=== PATIENT | female | born 1990 | race African-American/Black ===

== ENCOUNTER 2017-07-02 11:49 | Outpatient (CLI) | payer MEDICAID ==
[~2017-07-02] VITALS: Ht 177.8 cm; Wt 96.0 kg
[2017-07-02 13:38] VITALS: Ht 177.8 cm; Wt 96.0 kg
[2017-07-02 13:39] VITALS: BP 116/72; PULSE 97; RESP 20
--- NOTE | 2017-07-02 14:05 | PN ---
Triage Information Date/Time Reason for visit: swallon labia and yeast infection Weeks of Gestation Patient is 2 para 1 at 35 weeks of gestation with care in [facility] Here with complaint of swelling of right labia /Para 2 para 1 Diabetes: none Hypertention: none Objective Vital Signs Date Time Temp Pulse Resp B/P Pulse Ox O2 Delivery O2 Flow Rate FiO2 07/02/17 13:39 98.2 97 20 116/72 Room Air Heart Rate: 140's Heart Rate Comments NST reactive Contractions: None Results/Medications Results 24 hrs WNL Medications Current Medications Nystatin/ Triamcinolone Acetonide (Mycolog Cr) 1 applic BID PRN TOP SWELLING; Start 07/02/17 at 21:00 Imaging Results PROCEDURE: Obstetrical ultrasound. CLINICAL INDICATION: , evaluation. Pelvic pain. TECHNIQUE: Transabdominal sonographic images of the uterus obtained after first trimester, greater than 14 weeks gestation. Single intrauterine gestation present. COMPARISON: 03/05/2015 FINDINGS: Single intrauterine gestation. There is a cephalic presentation. Measurements were made in order to determine age. The results are as follows: BPD = 35 weeks 0 day(s) HC = 35 weeks 5 day(s) AC = 35 weeks 6 day(s) FL = 35 weeks 5 day(s) Heart rate = 146 beats per minute The placenta is posterior. There is no evidence for an abruption or placenta previa. Ovaries are not visualized. IMPRESSION: Single intrauterine gestation of approximately 35 weeks 4 days by ultrasound criteria. Hadlock estimated weight = 2742 g; 56 percentile for gestational age of 35 weeks 3 days. RPTAT: AADD .Emile Alvarez MD, Date Time Electronically viewed and signed by .Emile Alvarez MD, on 07/02/2017 15:37 .B/ CC: YASMANI CRUZ MD PROCEDURE: Obstetrical ultrasound for biophysical profile CLINICAL INDICATION: Biophysical profile. . TECHNIQUE: Obstetrical ultrasound of the uterus for biophysical profile. Transabdominal views are obtained. COMPARISON: 03/05/2015 FINDINGS: Single intrauterine gestation. Presentation: Cephalic. Placenta: Posterior No evidence of placental abruption. No evidence of placenta previa. breathing movement = 2/2 tone = 2/2 motion = 2/2 STEVE = 2/2 STEVE = 11.9 cm heart rate: 148 beats per minute IMPRESSION: Single intrauterine gestation. Biophysical profile 06/14 RPTAT: AADD .Emile Alvarez MD, MD Date Time Electronically viewed and signed by .Emile Alvarez MD, MD on 07/02/2017 15:34 .B/ CC: YASMANI CRUZ MD Disposition: Discharge Assessment/Plan kick counts were reviewed with the patient patient was given Mycolog cream to use externally on the labia Patient was instructed to follow up with obgyn in 2-3 days YASMANI CRUZ MD Jul 02, 2017 14:05
[2017-07-02 14:41] LABS: BASOPHILS % 0.2 % (0.0-2.0); EOSINOPHILS # 0.1 10^3/ul (0.0-0.5); EOSINOPHILS % 0.6 % (0.0-7.0); HEMOGLOBIN 11.3 g/dl (12.0-16.0); LYMPHOCYTES # 1.8 10^3/ul (0.8-2.9); LYMPHOCYTES % 12.6 % (15.0-51.0); MEAN CORPUSCULAR HEMOGLOBIN 31.7 pg (29.0-33.0); MEAN CORPUSCULAR HGB CONC 32.3 g/dl (32.0-37.0); MEAN CORPUSCULAR VOLUME 98.3 fl (82.0-101.0); MEAN PLATELET VOLUME 10.9 fl (7.4-10.4); MONOCYTE # 0.9 10^3/ul (0.3-0.9); MONOCYTES % 6.4 % (0.0-11.0); NEUTROPHILS % 79.3 % (39.0-77.0); PLATELET COUNT 181 10^3/UL (140-415); RED BLOOD COUNT 3.56 10^6/ul (4.20-5.40); RED CELL DISTRIBUTION WIDTH 12.6 % (11.5-14.5); WHITE BLOOD COUNT 13.9 10^3/ul (4.8-10.8)
[2017-07-02 15:19] LABS: BARBITURATES Negative (NEGATIVE); BENZODIAZEPINES Negative (NEGATIVE); CANNABINOIDS Negative (NEGATIVE); COCAINE Negative (NEGATIVE); OPIATES Negative (NEGATIVE)
--- NOTE | 2017-07-02 15:34 | RADRPT ---
PROCEDURE: Obstetrical ultrasound for biophysical profile CLINICAL INDICATION: Biophysical profile. . TECHNIQUE: Obstetrical ultrasound of the uterus for biophysical profile. Transabdominal views are obtained. COMPARISON: 03/05/2015 FINDINGS: Single intrauterine gestation. Presentation: Cephalic. Placenta: Posterior No evidence of placental abruption. No evidence of placenta previa. breathing movement = 2/2 tone = 2/2 motion = 2/2 STEVE = 2/2 STEVE = 11.9 cm heart rate: 148 beats per minute IMPRESSION: Single intrauterine gestation. Biophysical profile 06/14 RPTAT: AADD .Emile Alvarez MD, MD Date Time Electronically viewed and signed by .Emile Alvarez MD, on 07/02/2017 15:34 .B/
--- NOTE | 2017-07-02 15:37 | RADRPT ---
PROCEDURE: Obstetrical ultrasound. CLINICAL INDICATION: , evaluation. Pelvic pain. TECHNIQUE: Transabdominal sonographic images of the uterus obtained after first trimester , greater than 14 weeks gestation. Single intrauterine gestation present. COMPARISON: 03/05/2015 FINDINGS: Single intrauterine gestation. There is a cephalic presentation. Measurements were made in order to determine age. The results are as follows: BPD = 35 weeks 0 day(s) HC = 35 weeks 5 day(s) AC = 35 weeks 6 day(s) FL = 35 weeks 5 day(s) Heart rate = 146 beats per minute The placenta is posterior. There is no evidence for an abruption or placenta previa. Ovaries are not visualized. IMPRESSION: Single intrauterine gestation of approximately 35 weeks 4 days by ultrasound criteria. Hadlock estimated weight = 2742 g; 56 percentile for gestational age of 35 weeks 3 days. RPTAT: AADD .Emile Alvarez MD, MD Date Time Electronically viewed and signed by .Emile Avlarez MD, MD on 07/02/2017 15:37 .B/
[2017-07-02] MEDS ORDERED: NYSTATIN/TRIAMCINOLONE 15 GM CR TOP PRN (21:00)
[2017-07-06 13:49] LABS: RUBELLA ANTIBODY - IGG 1.21 index
== END 2017-07-02 15:45 | disposition home or self-care (01) ==
LOC: OBT 11:49 → L-D 11:54 → OBT 15:45
PROVIDERS: ATTEND Obstetrics & Gynecology Gynecology
DX: O26.893 Other specified pregnancy related conditions, third trimester (principal); Z3A.35 35 weeks gestation of pregnancy; N89.8 Other specified noninflammatory disorders of vagina
CPT/HCPCS: 76815; 76818; 80307; 85025; 86592; 86706; 86762; 86900; 86901; 87340; Z7610; G0463

== ENCOUNTER 2017-07-25 15:39 | Inpatient (IN) | payer MEDICAID ==
[~2017-07-25] VITALS: Ht 177.8 cm; Wt 94.3 kg
--- NOTE | 2017-07-25 16:05 | RADRPT ---
PROCEDURE: US OB biophysical profile. CLINICAL INDICATION: Decreased movements TECHNIQUE: Multiple sonographic images of the pelvis were obtained. The images were reviewed on a PACS workstation. COMPARISON: 07/02/2017 FINDINGS: There is a viable intrauterine gestation. There is a normal amount of amniotic fluid with an STEVE = 14.8 cm. Cardiac activity is present with 138 beats per minute. Biophysical profile: movement 2/2 tone 2/2. breathing 2/2 STEVE 2/2 Total 06/14 IMPRESSION: Normal biophysical profile. RPTAT:AAJJ Physician Richar Date Time Electronically viewed and signed by Physician Richar on 07/25/2017 16:05 /
[2017-07-25 16:52] VITALS: Ht 177.8 cm; Wt 94.3 kg
[2017-07-25 16:53] VITALS: BP 127/93; PULSE 93; RESP 18
[2017-07-25] MEDS ORDERED: OXYTOCIN 30 UNITS/LR 500 ML IV SCH (18:30)
[2017-07-25] MEDS ORDERED: CARBOPROST 250 MCG INJ IM PRN (18:30)
[2017-07-25] MEDS ORDERED: LACTATED RINGER'S 1,000 ML IV PRN (18:30)
[2017-07-25] MEDS ORDERED: OXYTOCIN 30 UNITS/LR 500 ML IV PRN (18:30)
[2017-07-25] MEDS ORDERED: BUTORPHANOL 2 MG INJ IV PRN ×2 (18:30)
[2017-07-25] MEDS ORDERED: METHYLERGONOVINE 0.2 MG INJ IM PRN (18:30)
[2017-07-25] MEDS ORDERED: MISOPROSTOL 200 MCG TAB PR PRN (18:30)
[2017-07-25] MEDS ORDERED: LIDOCAINE 1% (MPF) 30 ML INJ INJ PRN (18:30)
[2017-07-25 20:37] LABS: BASOPHILS % 0.3 % (0.0-2.0); EOSINOPHILS # 0.1 10^3/ul (0.0-0.5); EOSINOPHILS % 0.5 % (0.0-7.0); HEMATOCRIT 37.3 % (37.0-47.0); HEMOGLOBIN 12.2 g/dl (12.0-16.0); MEAN CORPUSCULAR HEMOGLOBIN 31.8 pg (29.0-33.0); MEAN CORPUSCULAR HGB CONC 32.7 g/dl (32.0-37.0); MEAN CORPUSCULAR VOLUME 97.1 fl (82.0-101.0); MEAN PLATELET VOLUME 11.2 fl (7.4-10.4); MONOCYTE # 0.9 10^3/ul (0.3-0.9); MONOCYTES % 5.8 % (0.0-11.0); NEUTROPHIL # 12.5 10^3/ul (1.6-7.5); NEUTROPHILS % 79.3 % (39.0-77.0); PLATELET COUNT 197 10^3/UL (140-415); RED BLOOD COUNT 3.84 10^6/ul (4.20-5.40); RED CELL DISTRIBUTION WIDTH 12.8 % (11.5-14.5); WHITE BLOOD COUNT 15.7 10^3/ul (4.8-10.8)
[2017-07-25 21:00] LABS: PARTIAL THROMBOPLASTIN TIME 29.2 Sec (25.0-35.0)
[2017-07-25] MEDS: LACTATED RINGER'S 1,000 ML IV SCH (21:22)
[2017-07-25] MEDS ORDERED: AMPICILLIN 2 GM/NS (PMX) 100 ML IVPB ONE (21:30)
[2017-07-25 21:44] LABS: INR 0.94; PROTIME 12.6 Sec (12.2-14.2)
[2017-07-26] MEDS: AMPICILLIN 1 GM/NS (PMX) 50 ML IVPB SCH ×3 (01:02→08:59)
--- NOTE | 2017-07-26 01:58 | TRIAGE ---
OB Triage Datetime Report Generated by CPN: 07/26/2017 01:57 Datetime: 07/26/2017 01:47 Decelerations: Variable Datetime: 07/26/2017 01:04 Pain Assessment Pain Scale: 0 Pain Presence: Intermittent Pain Type: Cramping Pain Assessment Comments: pt. occasionaly has some 'cramping' from uc's Datetime: 07/26/2017 01:01 Contraction Comments: irregular Heart Rate FHR Baseline Rate: 140 Monitor Mode: External US FHR Baseline Changes: No Baseline Change Variability: Moderate 6-25 bpm Accelerations: 15X15 Decelerations: Variable Datetime: 07/26/2017 00:00 Labor Evaluation Frequency: 4-7 Monitor Mode: External Duration (sec)2399: 60-80 Pattern: Normal: <= 5 Contractions in 10 Minutes Heart Rate FHR Baseline Rate: 150 Monitor Mode: External US FHR Baseline Changes: No Baseline Change Variability: Moderate 6-25 bpm Accelerations: 15X15 Datetime: 07/25/2017 23:49 Comments: CONTINUOUS MONITORING WITH CONSTANT MOVEMENT Datetime: 07/25/2017 23:42 Comments: KICKS AUSCULTATED WHILE ADJ EFM Datetime: 07/25/2017 23:00 Labor Evaluation Frequency: 2-7 Monitor Mode: External Duration (sec)2399: 60-90 Pattern: Normal: <= 5 Contractions in 10 Minutes Contraction Comments: irregular pattern Heart Rate FHR Baseline Rate: 135 Monitor Mode: External US FHR Baseline Changes: No Baseline Change Variability: Moderate 6-25 bpm Accelerations: 15X15 Decelerations: Variable Datetime: 07/25/2017 22:23 Assessment Type: Admission Assessment Vaginal Bleeding: None Maternal Assessment Level of Consciousness: Fully Conscious Headache: Denies Blurred Vision: No Respiratory Effort: Unlabored; Regular Rhythm; Equal Expansion Breath Sounds, Left: Clear and Equal Breath Sounds, Right: Clear and Equal Nausea/Vomiting: Denies RUQ Epigastric Pain: Denies Lower Extremities Edema: None Upper Extremities Edema: None Facial Edema: None Fall Risk Assessment History of Falling: (0) No Secondary Diagnosis: (0) No Ambulatory Aid: (0) Bedrest/Nurse Assist IV Therapy: (20) Yes Gait: (0) Normal/Bedrest/Immobile Mental Status: (0) Oriented to Own Ability Fall Score: 20 Fall Risk Score Definition: No Risk: No action required Pain Assessment Pain Scale: 0 Pain Presence: None/Denies Pain Type: N/A Membrane Status: Intact Datetime: 07/25/2017 22:21 Time of Arrival: 07/25/2017 18:24 EGA: 38.5 Arrived By: Ambulatory Arrived From: TRIAGE Datetime: 07/25/2017 22:04 Stage of : Labor Datetime: 07/25/2017 22:00 Stage of : OB Triage Labor Evaluation Frequency: 1-6.5 Monitor Mode: External Duration (sec)2399: 40-100 Quality: Mild Pattern: Normal: <= 5 Contractions in 10 Minutes Resting Tone Radisson: Relaxed Heart Rate FHR Baseline Rate: 135 Monitor Mode: External US FHR Baseline Changes: No Baseline Change Variability: Moderate 6-25 bpm Accelerations: 15X15 Decelerations: Variable Category: Category II Datetime: 07/25/2017 21:00 Stage of : OB Triage Labor Evaluation Frequency: 1.5-5.5 Monitor Mode: External Duration (sec)2399: 40-140 Quality: Mild Pattern: Normal: <= 5 Contractions in 10 Minutes Resting Tone Radisson: Relaxed Heart Rate FHR Baseline Rate: 135 Monitor Mode: External US FHR Baseline Changes: No Baseline Change Variability: Moderate 6-25 bpm Accelerations: 15X15 Decelerations: Variable Category: Category II Datetime: 07/25/2017 20:00 Stage of : OB Triage Labor Evaluation Frequency: 1.5-7 Monitor Mode: External Duration (sec)2399: 40-140 Quality: Mild Pattern: Normal: <= 5 Contractions in 10 Minutes Resting Tone Radisson: Relaxed Heart Rate FHR Baseline Rate: 135 Monitor Mode: External US Variability: Moderate 6-25 bpm Accelerations: 15X15 Decelerations: Variable Category: Category II Datetime: 07/25/2017 19:44 Stage of : OB Triage Pain Assessment Pain Scale: 0 Pain Presence: None/Denies Pain Type: N/A Pain Assessment Comments: Pt denies feeling any pain or uc cramping Datetime: 07/25/2017 19:15 Stage of : OB Triage Datetime: 07/25/2017 18:24 Stage of : OB Triage Datetime: 07/25/2017 18:08 Stage of : OB Triage Datetime: 07/25/2017 18:02 Vaginal Exam Dilatation (cms): 1.5 Effacement (%): 60 Station: -2 Exam By: slayne Vaginal Bleeding: None Cervix, Consistency: Soft Cervix, Position: Posterior Presentation 'A': Cephalic Datetime: 07/25/2017 16:15 Stage of : OB Triage Maternal Assessment Level of Consciousness: Fully Conscious DTR's/Clonus: DTRs 2+; No Clonus Headache: Denies Blurred Vision: No Respiratory Effort: Unlabored Breath Sounds, Left: Clear and Equal Breath Sounds, Right: Clear and Equal Nausea/Vomiting: Denies RUQ Epigastric Pain: Denies Facial Edema: None Labor Evaluation Frequency: X2 Monitor Mode: External Duration (sec)2399: 80-110 Quality: Mild Pattern: Normal: <= 5 Contractions in 10 Minutes Resting Tone Radisson: Relaxed Heart Rate FHR Baseline Rate: 135 Monitor Mode: External US FHR Baseline Changes: No Baseline Change Variability: Moderate 6-25 bpm Accelerations: 15X15 Decelerations: Variable Category: Category II Pain Assessment Pain Scale: 0 Pain Presence: None/Denies Pain Type: N/A Pain Goal: 0 Pain Relief Measures: Comfort Measures Membrane Status: Intact Datetime: 07/25/2017 16:11 Time of Arrival: 07/25/2017 15:30 EGA: 38.5 Arrived By: Ambulatory Arrived From: Dr. Olivo Chief Complaint: SENT OVER FROM OFFICE FOR BPP/NST POSS DECEL. DENIES LEAKING, BLEEDING OR UC'S Movement: Present Contractions: Denies/Absent Rupture of Membranes: Denies Vaginal Discharge: Denies Recent Sexual Intercouse: Denies Abdominal Trauma: Not Applicable Patient Complaints: None Time Provider Notified: 07/25/2017 18:08 Provider Notified: Dr.Marybel Initial Plan: MONITOR, BPP Datetime: 07/02/2017 16:00 Labor Evaluation Frequency: OCCASIONAL Monitor Mode: External Resting Tone Radisson: Relaxed Heart Rate FHR Baseline Rate: 140 Monitor Mode: External US FHR Baseline Changes: No Baseline Change Variability: Moderate 6-25 bpm Accelerations: 15X15 Decelerations: None Category: Category I Datetime: 07/02/2017 15:00 Labor Evaluation Frequency: 0 Monitor Mode: External Pattern: Normal: <= 5 Contractions in 10 Minutes Resting Tone Radisson: Relaxed Heart Rate FHR Baseline Rate: LOSS OF INFORMATIONS Monitor Mode: External US Datetime: 07/02/2017 13:50 Labor Evaluation Frequency: X1 Monitor Mode: External Quality: Mild Resting Tone Radisson: Relaxed Contraction Comments: PT DOES NOT FEEL IT Heart Rate FHR Baseline Rate: 140 Monitor Mode: External US FHR Baseline Changes: No Baseline Change Variability: Moderate 6-25 bpm Accelerations: 15X15 Decelerations: Variable (Annotations: X1) Category: Category II Datetime: 07/02/2017 13:00 Labor Evaluation Frequency: 0 Monitor Mode: External Pattern: Normal: <= 5 Contractions in 10 Minutes Resting Tone Radisson: Relaxed Heart Rate FHR Baseline Rate: 140 Monitor Mode: External US FHR Baseline Changes: No Baseline Change Variability: Moderate 6-25 bpm Accelerations: 15X15 Decelerations: None Category: Category I Datetime: 07/02/2017 12:30 Stage of : OB Triage Temperature Route: Oral Pain Assessment Pain Scale: 5 Pain Presence: Constant Pain Type: Ache Pain Location: RT LABIA MAJORA,SWOLLEN Pain Goal: 0 Pain Relief Measures: Comfort Measures (Annotations: ICEPACK)
[2017-07-26] MEDS ORDERED: MINERAL OIL LIGHT 10 ML VIAL TOP PRN (02:00)
[2017-07-26] MEDS: LACTATED RINGER'S 1,000 ML IV SCH ×2 (03:58→09:40)
[2017-07-26] MEDS ORDERED: OXYTOCIN 30 UNITS/LR 500 ML IV SCH (06:00)
[2017-07-26] MEDS ORDERED: FENTAnyl 2MCG/ML-ROPIV 0.2% 100 ML BAG EPI SCH (09:30)
[2017-07-26] MEDS ORDERED: DIPHENHYDRAMINE 50 MG INJ IV PRN (09:30)
[2017-07-26] MEDS ORDERED: ONDANSETRON 4 MG INJ IV PRN (09:30)
[2017-07-26] MEDS ORDERED: NALOXONE (0.4 MG/ML) INJ IV PRN (09:30)
--- NOTE | 2017-07-26 10:15 | LDN ---
Date/Time of Note Date/Time of Note DATE: 07/26/17 TIME: 10:13 Delivery Summary Normal spontaneous vaginal delivery of a viable over intact perineum Weeks of Gestation 38 weeks and 6 days Placenta Delivered: Spontaneously, Intact & Complete Meconium: none Episiotomy: No Perineal laceration: 0 Anesthesia type: None Estimated blood loss: 300 Sponge & Needle done & correct: Yes All needle counts correct: Yes Any foreign bodies felt in the: No Problems: Delivery Information Sex Infant Sex: female Apgars 1 Minute: 9 5 Minute: 9 Suctioning Nose & mouth suctioned at coty: Yes Delee suction performed: No Umbilical Cord Umbilical cord with: 3 Vessels Cord presentations: no nuchal cord Cord Blood was obtained: Yes Mother & Baby Disposition Disposition Mom & Baby to Maternity; Good: Yes (Mother and baby were recovered in good condition) Mom transferred to: Other (Maternity) Baby to NICU: No JACQUES MONTANEZ MD Jul 26, 2017 10:15
--- NOTE | 2017-07-26 10:19 | HP ---
Date/Time of Note Date/Time of Note DATE: 07/26/17 TIME: 10:17 OB - History Hx of Present Free Text/Dictation Admitted for audible deceleration in the clinic at 38 weeks and 5 days Estimated Due Date: Aug 03, 2017 : 2 Para: 1 Care: Good Care Ultrasounds: Normal mid trimester US Obstetrical Complications: None Medical Complications: Musculoskeletal Past Family/Social History * Past Medical, Surgical, Family and Obstetric Histories reviewed from chart. Blood Type: O+ Rubella: immune RPR/VDRL: Negative GBS Status: Unknown HBsAG: Negative OB Admission Exam Vital Signs Vital Signs Vital Signs Date Time Temp Pulse Resp B/P Pulse Ox O2 Delivery O2 Flow Rate FiO2 07/25/17 16:53 98.3 93 18 127/93 18 Room Air Physical Exam HEENT: WNL Heart: Rhythm Normal Lungs: Clear, Equal Abdomen: WNL Extremities: Normal Reflexes: Normal Cervical Dilatation: 1cm Effacement: 50% Station: -2 Membranes: Intact Heart Rate: 130's Accelerations: Accelerations Present Decelerations: No Decelerations Varibility: Moderate Contractions on Admission: None Last 72 hours Lab Results CBC & BMP 07/25/17 20:20 OB Assessment/Plan Reason for admission: induction of labor Other Assessment: 38 weeks and 5 days gestation Audible heart tone decelerations Other plan: Admitted by Dr. No for labor and delivery JACQUES MONTANEZ MD Jul 26, 2017 10:19
[2017-07-26] MEDS: OXYTOCIN 30 UNITS/LR 500 ML IV SCH ×3 (10:34→19:11)
[2017-07-26] MEDS ORDERED: IBUPROFEN 600 MG TAB ONE (20:09)
[2017-07-26] MEDS: IBUPROFEN 600 MG TAB PO SCH (20:20)
[2017-07-26 20:30] VITALS: BP 126/70; PULSE 81; RESP 18
[2017-07-26] MEDS ORDERED: WITCH HAZEL/GLYCERIN PAD PR PRN (20:30)
[2017-07-26] MEDS: LACTATED RINGER'S 1,000 ML IV* SCH (20:30)
[2017-07-26] MEDS ORDERED: MISOPROSTOL 200 MCG TAB PR PRN (20:30)
[2017-07-26] MEDS ORDERED: LANOLIN 7 GM TUBE TOP PRN (20:30)
[2017-07-26] MEDS ORDERED: ZOLPIDEM 5 MG TAB PO PRN (20:30)
[2017-07-26] MEDS ORDERED: CARBOPROST 250 MCG INJ IM PRN (20:30)
[2017-07-26] MEDS ORDERED: METHYLERGONOVINE 0.2 MG INJ IM PRN (20:30)
[2017-07-26] MEDS ORDERED: HYDROCODONE/APAP (5/325) TAB PO PRN ×2 (20:30)
[2017-07-26] MEDS ORDERED: DIBUCAINE 1% 30 GM OINT PR PRN (20:30)
[2017-07-26] MEDS ORDERED: OXYTOCIN 30 UNITS/LR 500 ML IV PRN (20:30)
[2017-07-26] MEDS ORDERED: BENZOCAINE 20% 56 ML SPRAY TOP PRN (20:30)
[2017-07-26] MEDS: SENNA/DOCUSATE NA (8.6MG/50MG) TAB PO SCH (21:00)
[2017-07-26] MEDS: MAGNESIUM HYDROXIDE 30ML CUP PO SCH (21:00)
[2017-07-27 00:30] VITALS: BP 122/68; PULSE 66; RESP 18
[2017-07-27 04:30] VITALS: BP_SYST 110; BP_DIAS 110; BP_DIAS 80; PULSE 72; RESP 18
[2017-07-27] MEDS: IBUPROFEN 600 MG TAB PO SCH ×4 (06:00→17:47)
[2017-07-27 08:00] VITALS: BP 114/74; PULSE 84; RESP 18
[2017-07-27] MEDS: MAGNESIUM HYDROXIDE 30ML CUP PO SCH ×2 (09:00→21:00)
[2017-07-27] MEDS: SENNA/DOCUSATE NA (8.6MG/50MG) TAB PO SCH ×2 (09:24→21:36)
[2017-07-27 11:27] LABS: BASOPHILS % 0.3 % (0.0-2.0); EOSINOPHILS # 0.1 10^3/ul (0.0-0.5); EOSINOPHILS % 0.9 % (0.0-7.0); HEMATOCRIT 38.7 % (37.0-47.0); HEMOGLOBIN 12.5 g/dl (12.0-16.0); LYMPHOCYTES # 2.2 10^3/ul (0.8-2.9); LYMPHOCYTES % 14.3 % (15.0-51.0); MEAN CORPUSCULAR HEMOGLOBIN 31.4 pg (29.0-33.0); MEAN CORPUSCULAR HGB CONC 32.3 g/dl (32.0-37.0); MEAN CORPUSCULAR VOLUME 97.2 fl (82.0-101.0); MONOCYTE # 0.8 10^3/ul (0.3-0.9); MONOCYTES % 5.4 % (0.0-11.0); NEUTROPHIL # 11.9 10^3/ul (1.6-7.5); NEUTROPHILS % 78.1 % (39.0-77.0); PLATELET COUNT 211 10^3/UL (140-415); RED BLOOD COUNT 3.98 10^6/ul (4.20-5.40); RED CELL DISTRIBUTION WIDTH 12.7 % (11.5-14.5); WHITE BLOOD COUNT 15.2 10^3/ul (4.8-10.8)
[2017-07-27] MEDS: LACTATED RINGER'S 1,000 ML IV* SCH ×3 (12:06→20:06)
--- NOTE | 2017-07-27 13:28 | PN ---
Date/Time of Note Date/Time of Note DATE: 07/27/17 TIME: 13:27 OB Subjective Subjective Subjective no c/o OB Objective Objective Objective vss afebrile fundus firm lochia min calf neg for tenderness OB Assessment/Plan Other Assessment: stable post vaginal delivery Other plan: home in am HIRO LADD MD Jul 27, 2017 13:28
[2017-07-27 16:00] VITALS: BP 111/65; PULSE 69; RESP 18
[2017-07-27 20:00] VITALS: BP 112/63; PULSE 82; RESP 18
[2017-07-28] MEDS: IBUPROFEN 600 MG TAB PO SCH ×3 (01:06→12:14)
[2017-07-28 04:00] VITALS: BP 125/83; PULSE 82; RESP 19
[2017-07-28] MEDS: LACTATED RINGER'S 1,000 ML IV* SCH ×2 (04:06→12:06)
[2017-07-28 09:00] VITALS: BP 121/79; PULSE 74
[2017-07-28] MEDS ORDERED: DIPHTH/TET/ACEL PERTUSS (ADULT) 0.5 ML VIAL IM* ONE (09:00)
[2017-07-28] MEDS: MAGNESIUM HYDROXIDE 30ML CUP PO SCH (09:00)
[2017-07-28] MEDS ORDERED: MEASLES,MUMPS,RUBELLA VACCINE INJ SC* ONE (09:00)
[2017-07-28] MEDS ORDERED: VARICELLA VACCINE LIVE/PF 1,350 UNIT/0.5 ML ML SC* ONE (09:00)
[2017-07-28] MEDS: SENNA/DOCUSATE NA (8.6MG/50MG) TAB PO SCH (10:07)
--- NOTE | 2017-07-28 14:07 | PD.PPDC ---
EMAIL MANAGER Discharge Instruction Diagnosis Final Diagnosis: s/p normal vaginal delivery Condition Patient Condition: Stable Diet Diet: Resume Regular Diet Activity/Restrictions Activity: May Shower Restrictions: No Lifting No Sexual Activity Nothing in the Vagina No [place] No Tampons, douche Follow-up Follow-up with Physician: 6, Week/Weeks Return to clinic for PRODUCT MANAGEMENT INTERN Instructions: Fever greater than 101 Chills Worsening abdominal pain Excessive Vaginal Bleeding More than 2 pads per hour Unable to tolerate diet OB Instructions: Breast Tenderness Depression Blurried Vision Headache HIRO LADD MD Jul 28, 2017 14:06
--- NOTE | 2017-07-28 14:09 | DS ---
Date/Time of Note Date/Time of Note DATE: 07/28/17 TIME: 14:07 Obstetrical Discharge Record Final Diagnosis Final Diagnosis: Term delivered Vaginal Delivery Obstetrical Delivery: Spontaneous Complications Augmentation: Yes Induction: No Condition on Discharge Physical Assessment Last Vitals: vss afebrile fundus firm lochia min calf neg for tenderness Voiding: Yes Bowel Movement: Yes Breast: Soft, non-tender Fundus: Firm Calf Tenderness: No Patient Condition: Stable HIRO LADD MD Jul 28, 2017 14:08
== END 2017-07-28 17:50 | disposition home or self-care (01) | DRG 775 ==
LOC: OBT 15:39 → L-D 15:40 → OBT 18:24 → PP1 07-26 20:15
PROVIDERS: ADMIT Obstetrics & Gynecology; ATTEND Obstetrics & Gynecology
PROC: 10E0XZZ Delivery of Products of Conception, External Approach (ICD-10-PCS; principal; 2017-07-26)
DX: O76 Abnormality in fetal heart rate and rhythm complicating labor and delivery (principal); Z37.0 Single live birth; Z3A.38 38 weeks gestation of pregnancy
CPT/HCPCS: 36415; 76818; 85025; 85610; 85730; 86592; 86900; 86901; 87340; 90715; 90716; G0463; J0290; J0595; J2590; J7120

== ENCOUNTER 2018-01-11 11:39 | Emergency (ER) | END 2018-01-11 15:18 | disposition home or self-care (01) ==